=== PATIENT | female | born 1945 | race Hispanic/Latino ===

== ENCOUNTER 2022-08-29 23:30 | Inpatient (IN) | payer OTHER, MEDICARE ==
[~2022-08-29] VITALS: Ht 157.5 cm; Wt 94.2 kg
[2022-08-30] MEDS ORDERED: 0.9%NACL 1000ML 1,000 ML IV ONE
[2022-08-30] MEDS ORDERED: ONDANSETRON 4MG INJ IVP ONE
[2022-08-30 00:12] LABS: BASOPHILS % (AUTO) 0.2 % (0.0-5.0); HEMATOCRIT 40.5 % (36-48); LYMPHOCYTES % (AUTO) 4.6 % (21.0-51.0); MEAN CORPUSCULAR HGB CONC 32.1 g/dL (32.0-36.0); MEAN CORPUSCULAR VOLUME 77.7 fL (79-99); MONOCYTES % (AUTO) 8.6 % (3.0-13.0); NEUTROPHILS % (AUTO) 85.9 % (40.0-77.0); PLATELET COUNT (AUTO) 224 K/uL (130-400); RED BLOOD CELL COUNT(AUTO) 5.21 MIL/uL (4.00-5.50); RED CELL DISTRIBUTION WIDTH 14.4 % (11.0-15.5); WHITE BLOOD COUNT (AUTO) 21.4 K/uL (4.8-10.8)
[2022-08-30 00:21] LABS: CARBON DIOXIDE 22 mmol/L (21-32); CHLORIDE 93 mmol/L (101-111); CREATININE 1.3 mg/dL (0.5-1.5); GLOMERULAR FILTR. RATE CALC 42 mL/min (>60); GLUCOSE,RANDOM 318 mg/dL (70-105); POTASSIUM 4.2 mmol/L (3.5-5.1); SODIUM SERUM 129 mmol/L (136-145); UREA NITROGEN, BLOOD 18 mg/dL (7-18)
[2022-08-30 00:26] LABS: ALANINE AMINOTRANSFERASE 52 U/L (12-78); ALBUMIN 3.6 g/dL (3.5-5.0); ASPARTATE AMINOTRANSFERASE 26 U/L (10-37); CREATINE KINASE, TOTAL 56 U/L (21-232); TOTAL PROTEIN, SERUM 8.4 g/dL (6.0-8.3)
[2022-08-30] MEDS ORDERED: ACETAMINOPHEN 650 MG SUPPOSITORY RC ONE (00:30)
[2022-08-30 00:33] LABS: APPEARANCE,URINE CLEAR (CLEAR); BILIRUBIN,URINE NEGATIVE (NEGATIVE); COLOR,URINE LIGHT-YELLOW (YELLOW); GLUCOSE, URINE (UA) >=1000 mg/dL (NEGATIVE); KETONES,URINE 20 mg/dL (NEGATIVE); LEUKOCYTE ESTERASE ,URINE 25 Leu/uL (NEGATIVE); NITRATE,URINE 2+ (NEGATIVE); OCCULT BLOOD,URINE MODERATE (NEGATIVE); PROTEIN,URINE NEGATIVE (NEGATIVE); UROBILINOGEN,URINE 0.2 mg/dL (0.2-1.0)
[2022-08-30 00:36] LABS: BACTERIA,URINE MOD /HPF (None Seen); RBC,URINE 26-50 /HPF (0-1); SQUAMOUS EPITHELIAL CELL,UR FEW /HPF (0-2)
[2022-08-30 00:47] LABS: AMMONIA < 3 umol/L (11-32)
[2022-08-30] MEDS ORDERED: ZOSYN 3.375GM +NS 50ML IV ONE (01:00)
[2022-08-30] MEDS ORDERED: ASPIRIN 81MG CHEW TAB ONE (01:24)
[2022-08-30] MEDS ORDERED: INSULIN HUMULIN R 100 UNIT/ML 3ML ONE (01:25)
[2022-08-30] MEDS ORDERED: ASPIRIN 81MG CHEW TAB PO ONE (01:30)
[2022-08-30] MEDS ORDERED: NITROGLYCERIN 0.4 MG SL TAB SL PRN (01:30)
[2022-08-30] MEDS ORDERED: LACTATED RINGERS 1000ML 1,710 ML IV ONE (01:30)
[2022-08-30] MEDS ORDERED: LIDOCAINE HCL-MPF 1% 2ML VIAL IV PRN (01:30)
[2022-08-30] MEDS ORDERED: MORPHINE 4 MG SYG IV PRN (01:30)
[2022-08-30] MEDS ORDERED: POTASSIUM CHLORIDE 10% ELIXIR 20 MEQ/15 ML UDCUP PO PRN (01:30)
[2022-08-30] MEDS ORDERED: MAGNESIUM 2GM PREMIX 50ML 50 ML IV PRN (01:30)
[2022-08-30] MEDS ORDERED: ONDANSETRON 4MG INJ IV PRN (01:30)
[2022-08-30] MEDS ORDERED: INSULIN HUMULIN R 100 UNIT/ML 3ML SQ ONE (01:30)
[2022-08-30] MEDS ORDERED: MORPHINE 2 MG SYG IV PRN (01:30)
[2022-08-30] MEDS ORDERED: ACETAMINOPHEN 325 MG TAB PO PRN ×2 (01:30)
[2022-08-30] MEDS ORDERED: POTASSIUM CHLORIDE 20MEQ/100ML 100 ML IV PRN (01:30)
[2022-08-30 03:36] LABS: BASOPHILS % (AUTO) 0.3 % (0.0-5.0); EOSINOPHILS % (AUTO) 0.1 % (0.0-8.0); HEMATOCRIT 36.5 % (36-48); MEAN CORPUSCULAR HEMOGLOBIN 25.1 pg (27.0-33.0); MEAN CORPUSCULAR HGB CONC 32.1 g/dL (32.0-36.0); MEAN CORPUSCULAR VOLUME 78.2 fL (79-99); MONOCYTES % (AUTO) 8.1 % (3.0-13.0); NEUTROPHILS % (AUTO) 83.1 % (40.0-77.0); PLATELET COUNT (AUTO) 172 K/uL (130-400); RED BLOOD CELL COUNT(AUTO) 4.67 MIL/uL (4.00-5.50); RED CELL DISTRIBUTION WIDTH 14.3 % (11.0-15.5); WHITE BLOOD COUNT (AUTO) 16.1 K/uL (4.8-10.8)
[2022-08-30 03:50] LABS: HEMOGLOBIN A1C 12.4 % (4.0-6.0)
[2022-08-30 03:51] VITALS: BP 119/62
[2022-08-30 04:12] LABS: CARBON DIOXIDE 25 mmol/L (21-32); CHLORIDE 95 mmol/L (101-111); CREATININE 1.2 mg/dL (0.5-1.5); GLOMERULAR FILTR. RATE CALC 46 mL/min (>60); GLUCOSE,RANDOM 276 mg/dL (70-105); POTASSIUM 4.3 mmol/L (3.5-5.1); SODIUM SERUM 131 mmol/L (136-145); THYROID STIMULATING HORMONE 1.95 uIU/mL (0.36-3.74); UREA NITROGEN, BLOOD 19 mg/dL (7-18)
[2022-08-30 04:23] LABS: AMMONIA < 3 umol/L (11-32)
[2022-08-30] MEDS ORDERED: ZOSYN 3.375GM+NS 50ML 50 ML IV SCH (05:00)
[2022-08-30] MEDS: LEVOTHYROXINE 75 MCG TABLET PO SCH (05:41)
[2022-08-30] MEDS: LACTATED RINGERS 1000ML 1,000 ML IV SCH ×2 (05:52→22:44)
[2022-08-30] MEDS: INSULIN HUMULIN R 100 UNIT/ML 3ML SQ SCH ×4 (07:05→20:39)
[2022-08-30 08:07] VITALS: BP 130/58
[2022-08-30] MEDS: FAMOTIDINE 20MG TAB PO SCH (08:34)
[2022-08-30] MEDS: ASPIRIN 81 MG EC TAB PO SCH (08:34)
[2022-08-30] MEDS: ENOXAPARIN SODIUM 40 MG/0.4 ML SYRINGE SQ SCH (08:35)
[2022-08-30] MEDS ORDERED: PARO10TA71 PO (08:53)
[2022-08-30] MEDS ORDERED: GLIM4TAB36 PO (08:53)
[2022-08-30] MEDS ORDERED: EMPA25TA PO (08:53)
[2022-08-30] MEDS ORDERED: ERGO50CA PO (08:53)
[2022-08-30] MEDS ORDERED: ATOR10TA69 PO (08:53)
[2022-08-30] MEDS ORDERED: LISI30TA4 PO (08:53)
[2022-08-30] MEDS ORDERED: ASPI-1443 PO (08:53)
[2022-08-30] MEDS: ZOSYN 3.375GM+NS 50ML 50 ML IV SCH ×3 (09:07→20:35)
[2022-08-30 11:57] VITALS: BP 121/55
[2022-08-30 12:30] VITALS: BP 124/55
[2022-08-30] MEDS ORDERED: LIDO 2% VISC 30ML+MAG/AL/SIMETH 30ML+DICYCLOMINE 20MG 10ML PO SCH ×3 (13:00)
[2022-08-30] MEDS ORDERED: PHARMACY COMMUNICATION MISC SCH (13:00)
[2022-08-30] MEDS ORDERED: DICYCLOMINE HCL 10 MG/5 ML ML PO ONE (13:00)
[2022-08-30] MEDS ORDERED: COMPOUND PO MISCELLANEOUS 1 EACH MISC MISC PRN (13:00)
[2022-08-30] MEDS ORDERED: MAG/ALUM/SIMETH 30 ML UDCUP PO ONE (13:00)
[2022-08-30] MEDS ORDERED: LIDOCAINE HCL 2% VISCOUS 15 ML UDCUP PO ONE (13:00)
[2022-08-30] MEDS ORDERED: CILO100T3 PO (13:03)
[2022-08-30] MEDS ORDERED: CLOP-31 PO (13:03)
[2022-08-30] MEDS ORDERED: MONT-39 PO (13:04)
[2022-08-30] MEDS ORDERED: SEMA7TAB2 PO (13:04)
[2022-08-30] MEDS ORDERED: PREG150C46 PO (13:06)
[2022-08-30] MEDS ORDERED: METF-444 PO (13:06)
[2022-08-30] MEDS ORDERED: LEVO50CA4 PO (13:08)
[2022-08-30] MEDS ORDERED: ROSU10TA28 PO (13:08)
[2022-08-30] MEDS ORDERED: PANT40TA54 PO (13:09)
[2022-08-30] MEDS ORDERED: ALBU1.252 IH (13:10)
[2022-08-30] MEDS ORDERED: ICOS1CAP PO (13:11)
[2022-08-30] MEDS ORDERED: FLUT1BLS3 IH (13:12)
[2022-08-30 16:05] VITALS: BP 119/59
[2022-08-30] MEDS: LACTULOSE 20 GM/30 ML UDCUP PO SCH ×2 (16:08→20:22)
[2022-08-30 20:10] VITALS: BP 146/60
[2022-08-31 00:43] VITALS: BP 131/60
[2022-08-31 03:36] LABS: BASOPHILS % (AUTO) 0.2 % (0.0-5.0); EOSINOPHILS % (AUTO) 0.2 % (0.0-8.0); HEMATOCRIT 34.3 % (36-48); LYMPHOCYTES % (AUTO) 8.2 % (21.0-51.0); MEAN CORPUSCULAR HEMOGLOBIN 24.6 pg (27.0-33.0); MEAN CORPUSCULAR HGB CONC 31.8 g/dL (32.0-36.0); MEAN CORPUSCULAR VOLUME 77.4 fL (79-99); MONOCYTES % (AUTO) 8.4 % (3.0-13.0); NEUTROPHILS % (AUTO) 81.2 % (40.0-77.0); PLATELET COUNT (AUTO) 148 K/uL (130-400); RED BLOOD CELL COUNT(AUTO) 4.43 MIL/uL (4.00-5.50); RED CELL DISTRIBUTION WIDTH 14.2 % (11.0-15.5); WHITE BLOOD COUNT (AUTO) 14.2 K/uL (4.8-10.8)
[2022-08-31 03:46] LABS: CREATININE 1.2 mg/dL (0.5-1.5); MAGNESIUM 2.1 mg/dL (1.80-2.40); PHOSPHORUS 3.1 mg/dL (2.5-4.9); POTASSIUM 3.8 mmol/L (3.5-5.1)
[2022-08-31] MEDS: ZOSYN 3.375GM+NS 50ML 50 ML IV SCH ×3 (04:59→22:29)
[2022-08-31] MEDS: LEVOTHYROXINE 75 MCG TABLET PO SCH (05:04)
[2022-08-31 05:15] VITALS: BP 108/55
[2022-08-31] MEDS: INSULIN HUMULIN R 100 UNIT/ML 3ML SQ SCH ×4 (06:05→22:33)
[2022-08-31] MEDS: KCL 20 MEQ ERTAB PO PRN ×2 (06:36→12:18)
[2022-08-31 07:00] VITALS: BP 111/58
[2022-08-31] MEDS: LACTULOSE 20 GM/30 ML UDCUP PO SCH (09:00)
[2022-08-31] MEDS: ENOXAPARIN SODIUM 40 MG/0.4 ML SYRINGE SQ SCH (09:43)
[2022-08-31] MEDS: ASPIRIN 81 MG EC TAB PO SCH (09:43)
[2022-08-31] MEDS: FAMOTIDINE 20MG TAB PO SCH (09:43)
[2022-08-31 11:00] VITALS: BP 109/60
[2022-08-31] MEDS ORDERED: LACTULOSE 20 GM/30 ML UDCUP PO PRN (13:00)
[2022-08-31 16:00] VITALS: BP 106/52
[2022-08-31 19:24] VITALS: BP 110/43
[2022-08-31] MEDS ORDERED: ATORVASTATIN 40 MG TABLET PO SCH (21:00)
[2022-09-01 00:24] VITALS: BP 108/55
[2022-09-01 03:24] VITALS: BP 109/54
[2022-09-01] MEDS: ZOSYN 3.375GM+NS 50ML 50 ML IV SCH ×2 (05:08→12:05)
[2022-09-01] MEDS: INSULIN HUMULIN R 100 UNIT/ML 3ML SQ SCH ×3 (06:23→16:41)
[2022-09-01] MEDS: LEVOTHYROXINE 75 MCG TABLET PO SCH (06:24)
[2022-09-01 07:00] VITALS: BP 104/51
[2022-09-01] MEDS: ASPIRIN 81 MG EC TAB PO SCH (08:15)
[2022-09-01] MEDS: FAMOTIDINE 20MG TAB PO SCH (08:15)
[2022-09-01] MEDS: ENOXAPARIN SODIUM 40 MG/0.4 ML SYRINGE SQ SCH (08:17)
[2022-09-01 11:00] VITALS: BP 114/57
[2022-09-01] MEDS ORDERED: ATOR40TA69 PO (15:33)
[2022-09-01] MEDS ORDERED: LEVO75TA4 PO (15:33)
[2022-09-01] MEDS ORDERED: LEVO750T39 PO (15:33)
[2022-09-01 16:00] VITALS: BP 119/61
== END 2022-09-01 17:15 | disposition home or self-care (01) | DRG 871 ==
LOC: EDH 23:30 → EDHIP 08-30 01:11 → 2DH 08-30 03:36
PROVIDERS: ADMIT Internal Medicine; ATTEND Internal Medicine
DX: A41.9 Sepsis, unspecified organism (principal); G93.41 Metabolic encephalopathy; N39.0 Urinary tract infection, site not specified; Z16.29 Resistance to other single specified antibiotic; I24.8 Other forms of acute ischemic heart disease; Z20.822 Contact with and (suspected) exposure to COVID-19; E11.65 Type 2 diabetes mellitus with hyperglycemia; B96.1 Klebsiella pneumoniae [K. pneumoniae] as the cause of diseases classified elsewhere; E03.9 Hypothyroidism, unspecified; E78.00 Pure hypercholesterolemia, unspecified; I10 Essential (primary) hypertension; Z96.651 Presence of right artificial knee joint
CPT/HCPCS: 36415; 70450; 71045; 80048; 80053; 81001; 82140; 82550; 82948; 83036; 83605; 83735; 84100; 84145; 84443; 84484; 85025; 87040; 87077; 87088; 87186; 87635; 87804; 93005; 93306; 96361; 96365; 96366; 96375; 99291; C9803; G0378; J1650; J1815; J2405; J2543; J3475; J7030; J7120

== ENCOUNTER 2024-10-14 11:04 | Inpatient (IN) | payer OTHER, MEDICARE ==
[~2024-10-14] VITALS: Ht 154.9 cm; Wt 63.5 kg
[~2024-10-14 11:04] MED LIST: ATOR40TA69 PO; DAPA10TA PO; DONE-53 PO; ERGO500093 PO; GLIM4TAB36 PO; LEVO100C4 PO; LISI30TA4 PO; MEMA5TAB16 PO; PARO10TA71 PO; QUET100T34 PO
[2024-10-14 11:48] LABS: BASOPHILS # (AUTO) 0.04 K/uL (0.00-0.20); BASOPHILS % (AUTO) 0.6 % (0.0-5.0); EOSINOPHILS # (AUTO) 0.06 K/uL (0.00-0.70); HEMATOCRIT 38.4 % (36-48); IMMATURE GRANULOCYTE ABSOLUTE 0.06 K/uL (0-1); LYMPHOCYTES # (AUTO) 0.6 K/uL (1.0-4.8); LYMPHOCYTES % (AUTO) 9.5 % (21.0-51.0); MEAN CORPUSCULAR HEMOGLOBIN 25.9 pg (27.0-33.0); MEAN CORPUSCULAR VOLUME 83.5 fL (79-99); MONOCYTES # (AUTO) 0.5 K/uL (0.1-1.0); MONOCYTES % (AUTO) 8.2 % (3.0-13.0); NEUTROPHILS % (AUTO) 79.7 % (40.0-77.0); PLATELET COUNT (AUTO) 175 K/uL (130-400); RED CELL DISTRIBUTION WIDTH 14.7 % (11.0-15.5); WHITE BLOOD COUNT (AUTO) 6.2 K/uL (4.8-10.8)
[2024-10-14 12:02] LABS: CREATININE 1.2 mg/dL (0.5-1.0)
[2024-10-14 12:20] LABS: B-TYPE NATRIURETIC PEPTIDE 109 pg/mL (0-100)
--- NOTE | 2024-10-14 12:36 | EKG ---
[facility] Test Date: 2024-10-14 Test Time: 11:15:49 Pat Name: TANA METCALF Department: ED Room: Gender: F Emergency Preparedness Manager: [id number] : 1945 Requested By: ZA PEREZ Order Number: [id number] Reading MD: Tyler Ceja Measurements Intervals Reynolds Rate: 72 P: 6 GA: 162 QRS: 59 QRSD: 127 T: 21 QT: 393 QTc: 430 Interpretive Statements Sinus rhythm Right bundle branch block Compared to ECG 09/08/2024 21:20:45 Right bundle-branch block now present Sinus bradycardia no longer present Electronically Signed On 10-14-2024 16:05:15 ALGORITHM DESIGN ENGINEER by Tyler Ceja Please click the below link to view image of tracing.
[2024-10-14] MEDS: 0.9%NACL 1000ML 1,000 ML IV ONE (12:38)
[2024-10-14] MEDS: CEFTRIAXONE 2GM VIAL IVPB ONE (12:38)
--- NOTE | 2024-10-14 12:40 | NUR ---
[address] BURRIS
[2024-10-14 12:49] LABS: SARS-CoV-2, RNA, NAAT NEGATIVE SARS CoV-2 (NEGATIVE)
[2024-10-14 12:55] LABS: INFLUENZA TYPE B Negative For Type B (NEGATIVE)
[2024-10-14 13:01] LABS: APPEARANCE,URINE CLEAR (CLEAR); BILIRUBIN,URINE NEGATIVE (NEGATIVE); COLOR,URINE LIGHT-YELLOW (YELLOW); GLUCOSE, URINE (UA) >=1000 mg/dL (NEGATIVE); KETONES,URINE 5 mg/dL (NEGATIVE); LEUKOCYTE ESTERASE ,URINE NEGATIVE Leu/uL (NEGATIVE); NITRATE,URINE 2+ (NEGATIVE); OCCULT BLOOD,URINE NEGATIVE (NEGATIVE); PH,URINE 5.5 (5.0-8.0); UROBILINOGEN,URINE 0.2 mg/dL (0.2-1.0)
[2024-10-14 13:02] LABS: ADD UA MICROSCOPIC YES; PROTEIN,URINE NEGATIVE (NEGATIVE)
[2024-10-14 13:03] LABS: BACTERIA,URINE FEW /HPF (None Seen); RBC,URINE 0-1 /HPF (0-1); SQUAMOUS EPITHELIAL CELL,UR RARE /HPF (0-2)
--- NOTE | 2024-10-14 13:37 | ERN ---
ED Note History of Present Illness Stated Complaint: COUGH, FEVER AND WEAKNESS Chief Complaint: Weakness Time Seen by MD: 12:08 Dictation: 79-year-old female with a history of dementia presents to the ED via EMS for evaluation of cough onset two days ago. EMS reports fever and generalized body weakness that started last night, but denies any other associated symptoms at this time. Allergies: Coded Allergies: Penicillins (Unverified Allergy, Unknown, 09/07/24) Home Meds Active Scripts Atorvastatin Calcium (LIPITOR) 40 Mg Tablet, 40 MG PO HS, #30 TAB 0 Refills Prov:JANE DAVILA MD 09/01/22 Reported Medications Quetiapine Fumarate (Quetiapine Fumarate) 100 Mg Tablet, 100 MG PO DAILY, TAB 09/07/24 Levothyroxine Sodium (Levothyroxine) 100 Mcg Capsule, 100 MCG PO DAILY, CAP 04/06/24 Donepezil HCl (Donepezil HCl) 10 Mg Tab.rapdis, 10 MG PO DAILY, TAB 04/06/24 Glimepiride (Glimepiride) 4 Mg Tablet, 4 MG PO BID, TAB 04/06/24 Ergocalciferol (Vitamin D2) (Vitamin D2) 1,250 Mcg (40613 Unit) Capsule, 1.25 MG PO QWEEK, CAP 04/06/24 Memantine HCl (Memantine HCl) 5 Mg Tablet, 5 MG PO BID, TAB 04/06/24 Dapagliflozin Propanediol (Farxiga) 10 Mg Tablet, 10 MG PO DAILY, TAB 04/06/24 Paroxetine HCl (Paroxetine HCl) 10 Mg Tablet, 10 MG PO DAILY, TAB 08/30/22 Lisinopril (Lisinopril) 30 Mg Tablet, 30 MG PO DAILY, TAB 08/30/22 Past Medical History Past Medical History: Dementia, Diabetes-Type II, Hypertension Additional Past Medical Hx: CHOLELITHIASIS Surgical History: Unknown Family History: Negative Social History: Negative, Other History: Not Applicable Review of System Dictation Constitutional: Positive for fever and weakness Eyes: Negative for injury, pain,redness, and discharge ENT: Negative for injury,pain or swelling Cardiovascular: Negative for chest pain, palpitations, and edema Respiratory: Positive for cough Negative for shortness of breath and wheezing, Abdomen/GI: Negative for abdominal pain, nausea, vomiting, diarrhea, and constipation Back: Negative for injury and pain : Negative for injury, bleeding and discharge MS/Extremity: Negative for injury and deformity Skin: Negative for rash, and discoloration Neuro: Negative for headache, weakness, numbness, tingling, and seizure Psych: Negative for suicide ideation, homicidal ideation, and hallucinations Initial Vital Sign VS Vital Signs Date Time Temp Pulse Resp B/P (MAP) Pulse Ox O2 Delivery O2 Flow Rate FiO2 10/14/24 11:08 102.4 70 17 114/62 97 Nasal Cannula 2.0 10/14/24 11:22 21 Physical Exam Dictation General: awake, alert, NAD Head/Face: Normocephalic, atraumatic Eyes: PERRL, EOMI, vision at baseline ENT: oral cavity clear, TMs clear, no signs of infection Neck: Trachea midline, supple, no nuchal rigidity Cardiovascular: RRR, normal S1/S2, No MRGs, no JVD Respiratory: CTAB, no respiratory distress, No rales or wheezes Abdomen: Soft, non-tender, non-distended, normal bowel sounds, no guarding or rebound. Skin: Warm, dry, normal turgor, no rash MS/Extremity: Pulses equal, no cyanosis, neurovascular intact, FROM Neuro: COAx4, GCS 15, strength 5/5, CN 2-12 intact, normal cerebellar exam, normal gait, Psych: Normal behavior, mood, and affect normal Results (Laboratory/Radiology) Laboratory/Radiology Laboratory Tests Test 10/14/24 11:31 10/14/24 11:35 10/14/24 12:10 10/14/24 12:26 White Blood Count 6.2 K/uL (4.8-10.8) Red Blood Count 4.60 MIL/uL (4.00-5.50) Hemoglobin 11.9 g/dL (12.0-16.0) L Hematocrit 38.4 % (36-48) Mean Corpuscular Volume 83.5 fL (79-99) Mean Corpuscular Hemoglobin 25.9 pg (27.0-33.0) L Mean Corpuscular Hemoglobin Concent 31.0 g/dL (32.0-36.0) L Red Cell Distribution Width 14.7 % (11.0-15.5) Platelet Count 175 K/uL (130-400) Mean Platelet Volume 12.4 fL (7.5-10.5) H Immature Granulocyte % (Auto) 1.0 % (0-1) Neutrophils (%) (Auto) 79.7 % (40.0-77.0) H Lymphocytes (%) (Auto) 9.5 % (21.0-51.0) L Monocytes (%) (Auto) 8.2 % (3.0-13.0) Eosinophils (%) (Auto) 1.0 % (0.0-8.0) Basophils (%) (Auto) 0.6 % (0.0-5.0) Neutrophils # (Auto) 5.0 K/uL (1.8-7.7) Lymphocytes # (Auto) 0.6 K/uL (1.0-4.8) L Monocytes # (Auto) 0.5 K/uL (0.1-1.0) Eosinophils # (Auto) 0.06 K/uL (0.00-0.70) Basophils # (Auto) 0.04 K/uL (0.00-0.20) Absolute Immature Granulocyte (auto 0.06 K/uL (0-1) Segmented Neutrophils % 62 % (40-70) Band Neutrophils % 17 % (0-2) H Lymphocytes % (Manual) 15 % (22-44) L Monocytes % (Manual) 4 % (2-9) Eosinophils % (Manual) 1 % (1-6) Basophils % (Manual) 1 % (0-2) Nucleated Red Blood Cells 0.0 % (0.0-0.19) Differential Comment MANUAL DIFFERENTIAL White Cell Morphology Comment CONSISTENT W/DIFF Platelet Morphology Comment ADEQUATE Red Blood Cell Morphology See comments Sodium Level 137 mmol/L (136-145) Potassium Level 5.0 mmol/L (3.5-5.1) Chloride Level 101 mmol/L (101-111) Carbon Dioxide Level 27 mmol/L (21-32) Blood Urea Nitrogen 22 mg/dL (7-18) H Creatinine 1.2 mg/dL (0.5-1.0) H Glomerular Filtration Rate Calc 46 mL/min (>90) Random Glucose 159 mg/dL (70-105) H Total Calcium 8.8 mg/dL (8.5-10.1) Troponin I High Sensitivity 10 ng/L (4-50) B-Type Natriuretic Peptide 109 pg/mL (0-100) H Influenza Type A Antigen Positive For Type A Influenza Type B Antigen Negative For Type B SARS-CoV-2, RNA, NAAT NEGATIVE SARS CoV-2 Urine Color LIGHT-YELLOW (YELLOW) Urine Appearance CLEAR (CLEAR) Urine pH 5.5 (5.0-8.0) Urine Specific [place] 1.022 (1.001-1.031) Urine Protein NEGATIVE mg/dL (NEGATIVE) Urine Glucose (UA) >=1000 mg/dL (NEGATIVE) H Urine Ketones 5 mg/dL (NEGATIVE) H Urine Occult Blood NEGATIVE (NEGATIVE) Urine Nitrate 2+ (NEGATIVE) H Urine Bilirubin NEGATIVE mg/dL (NEGATIVE) Urine Urobilinogen 0.2 mg/dL (0.2-1.0) Urine Leukocyte Esterase NEGATIVE Edgardo/uL Urine RBC 0-1 /HPF (0-1) Urine WBC 2-5 /HPF (0-1) H Urine Squamous Epithelial Cells RARE /HPF (0-2) Urine Bacteria FEW /HPF (None Seen) Lactic Acid Level 1.6 mmol/L (0.8-2.5) Labs Reviewed?: Yes EKG Comment: EK 10/14/2024 time 11:15 am ventricular rate 72, HI 162, QRS D 127, QT 393. Sinus rhythm, right bundle-branch block. No STEMI ED Course ED Course Orders Procedure Category Date Status Time Blood Cult DENILSON 10/14/24 In Process 11:06 Basic Metabolic Panel LAB 10/14/24 Complete 11:06 Cbc With Differential LAB 10/14/24 Complete 11:06 Urinalysis Profile LAB 10/14/24 Complete 11:06 Chest 1vw RAD 10/14/24 Taken 11:06 12 Lead Ekg Tracing- EKG 10/14/24 Complete Technical 11:06 Covid Rna Naat LAB 10/14/24 Complete 11:06 Influenza Type A & B, LAB 10/14/24 Complete Rapid 11:06 Troponin I High LAB 10/14/24 Complete Sensitivity 11:06 B-Type Natriuretic LAB 10/14/24 Complete Peptide 11:06 Lactic Acid LAB 10/14/24 Complete 12:08 Ceftriaxone 2gm Vial PHA 10/14/24 Complete (Rocephin 2gm Inj) 12:30 0.9%Nacl 1000ml (Ns PHA 10/14/24 Complete 1000ml) 12:30 Culture Urine DENILSON 10/14/24 In Process 13:02 Manual Differential LAB 10/14/24 Complete 11:31 Oseltamivir Phosphate PHA 10/14/24 Complete (Tamiflu) 15:00 Acetaminophen 500mg PHA 10/14/24 Complete Tab (Tylenol 500mg T 15:00 Current Medications Medications (Trade) Dose Ordered Sig/Patricia Route PRN Reason Start Time Stop Time Status Last Admin Dose Admin Acetaminophen (TYLenol 500MG TAB) 1,000 mg ONCE ONCE PO 10/14/24 15:00 10/14/24 15:01 DC 10/14/24 15:03 Ceftriaxone Sodium (Rocephin 2gm Inj) 2 gm ONCE ONCE IVPB 10/14/24 12:30 10/14/24 12:32 DC 10/14/24 12:38 Oseltamivir Phosphate (Tamiflu) 75 mg ONCE ONCE PO 10/14/24 15:00 10/14/24 15:01 DC 10/14/24 14:49 Sodium Chloride 1,000 ml @ 0 mls/hr ONCE ONCE IV 10/14/24 12:30 10/14/24 12:32 DC 10/14/24 12:38 Vital Signs Date Time Temp Pulse Resp B/P (MAP) Pulse Ox O2 Delivery O2 Flow Rate FiO2 10/14/24 14:34 99.1 74 17 128/60 97 Nasal Cannula* 2.0 N/A 10/14/24 12:46 100.6 70 17 127/62 97 Nasal Cannula* 2.0 N/A 10/14/24 11:38 102.4 66 17 136/53 97 Nasal Cannula* 2 28 10/14/24 11:22 102.4 70 17 114/62 97 Room Air* 0 21 10/14/24 11:08 102.4 70 17 114/62 97 Nasal Cannula 2.0 Medical Decision Making MDM MDM: Differential diagnosis: URI, cough, viral syndrome Risk of complication and/or morbidity or mortality of patient management: None Medications-Per medication reconciliation Need for hospitalization: Patient does meet criteria for hospitalization. Need for emergency major/minor surgery: No There are no social concerns with this patient. I independently interpreted the test that were performed, results were reviewed by me and considered findings on radiology if ordered. Medical management and examination interpretation discussions were had by me with other qualified healthcare professionals as indicated for the patient's care. DX & DISP Disposition: Inpatient Decision to Admit Date: Oct 14, 2024 Decision to Admit Time: 12:27 Departure Impression: Primary Impression: Influenza A Additional Impression: Dehydration Condition: Stable Referrals: BOLA SCHOFIELD MD (PCP) ZA PEREZ MD Oct 14, 2024 13:37
[2024-10-14 13:45] LABS: BAND NEUTROPHILS % (MANUAL) 17 % (0-2); BASOPHILS % (MANUAL) 1 % (0-2); EOSINOPHILS % (MANUAL) 1 % (1-6); LYMPHOCYTES % (MANUAL) 15 % (22-44); MAN.DIFF COMMENT-IMPRESSION MANUAL DIFFERENTIAL; MONOCYTES % (MANUAL) 4 % (2-9); PLATELET MORPHOLOGY COMMENT ADEQUATE; SEGMENTED NEUTROPHILS % 62 % (40-70); TOTAL CELLS COUNTED 100; WBC MORPHOLOGY CONSISTENT W/DIFF
[2024-10-14 14:28] LABS: INFLUENZA TYPE A Positive For Type A (NEGATIVE)
[2024-10-14] MEDS: OSELTAMIVIR PHOSPHATE 75 MG CAP PO ONE (14:49)
[2024-10-14] MEDS: acetaMINOPHEN 500 MG TABLET PO ONE (15:03)
--- NOTE | 2024-10-14 15:53 | HMCIMG ---
CHEST 1VW HISTORY: Fever and cough COMPARISON: 09/10/2024 FINDINGS: A frontal projection of the chest was obtained. Mild bilateral pulmonary infiltrates are seen may be related to mild pulmonary vascular congestion with possible superimposed pneumonitis. The heart is borderline enlarged. Postop changes are seen of right humerus. Degenerative changes are seen. IMPRESSION: 1. Mild bilateral pulmonary infiltrates are seen may be related to mild pulmonary vascular congestion with possible superimposed pneumonitis.
--- NOTE | 2024-10-14 20:54 | HP ---
[facility] HISTORY & PHYSICAL Date Patient Seen: Oct 14, 2024 Time of Visit: 20:53 Supervising Physician: Dr. Russ Estrada Primary Care Physician: Outpatient Specialists: [ ] Inpatient Consults: [ ] PROBLEM LIST: Acute hypoxic respiratory failure, POA Influenza B positive, POA Alteration in mental status, POA Acute kidney injury, POA Hypertension, POA Hypothyroidism, POA History of dementia on donepezil PLAN: Admit to medical-surgical floor VS per unit protocol Continue O2 therapy Isolation precautions We will continue Tamiflu Treat fever aggressively Monitor temperature curve Safety precautions Keep head of bed above 30 Keep systolic blood pressure less than 160 P.r.n. hydralazine labetalol Follow up culture results CBC, CMP, magnesium level daily HPI: 79-year-old female with past medical history of dementia, hypertension, hypothyroidism, who presented to ED via EMS with complaint of worsening shortness of breast for several days and found to have acute hypoxic respiratory failure, and flu B positive. Patient was seen and examined in ED with no relatives present at bedside. Patient unable to provide any pertinent information regarding her admission and pertinent medical history. All information were obtained from prior medical record and ER staff report. Patient presented in ER with mild hypoxemia improved with O2 therapy. Stat chest x-ray was done showed vascular congestion with superimposed pneumonitis, her CBC unrevealing for any acute infection or anemia, her chemistry is significant for creatinine level of 1.2, with normal electrolytes. Her COVID test was negative however her flu test came back positive with flu B. In ED patient was initiated on IV fluids and started on Tamiflu. At present patient is currently hemodynamically stable, on2 L of oxygen with appropriate oxygen saturation, patient is confused, with no focal weakness noted. PAST MEDICAL HX: see above PAST SURGICAL HX: noncontributory SOCIAL HISTORY: No tobacco, ETOH, or illicit drug use Coded Allergies: Penicillins (Unverified Allergy, Unknown, 09/07/24) REVIEW OF SYSTEMS: 12 point ROS reviewed with patient. Pertinent positives mentioned above. Otherwise negative. PHYSICAL EXAM: GENERAL: Confused HEENT: EOMI, Sclera non icteric, moist mucosa NECK: Supple, no JVD, trachea midline LUNGS: Clear breath sounds bilaterally. No wheezes HEART: Regular rate and rhythm. Normal S1 and S2, without murmurs ABD: Abdomen soft, nontender. Bowel sounds present EXT: No clubbing cyanosis or edema NEURO: Confused Vital Signs (last 8hr) Date Time Temp Pulse Resp B/P (MAP) Pulse Ox O2 Delivery O2 Flow Rate FiO2 10/14/24 19:58 98.2 57 18 117/52 97 Nasal Cannula* 2.0 N/A 10/14/24 18:23 99.1 72 17 124/62 97 Nasal Cannula* 2.0 N/A 10/14/24 14:34 99.1 74 17 128/60 97 Nasal Cannula* 2.0 N/A LABS: Hematology Labs: Test 10/14/24 11:31 Range/Units White Blood Count 6.2 4.8-10.8 K/uL Red Blood Count 4.60 4.00-5.50 MIL/uL Hemoglobin 11.9 L 12.0-16.0 g/dL Hematocrit 38.4 36-48 % Mean Corpuscular Volume 83.5 79-99 fL Mean Corpuscular Hemoglobin 25.9 L 27.0-33.0 pg Mean Corpuscular Hemoglobin Concent 31.0 L 32.0-36.0 g/dL Red Cell Distribution Width 14.7 11.0-15.5 % Platelet Count 175 130-400 K/uL Mean Platelet Volume 12.4 H 7.5-10.5 fL Immature Granulocyte % (Auto) 1.0 0-1 % Neutrophils (%) (Auto) 79.7 H 40.0-77.0 % Lymphocytes (%) (Auto) 9.5 L 21.0-51.0 % Monocytes (%) (Auto) 8.2 3.0-13.0 % Eosinophils (%) (Auto) 1.0 0.0-8.0 % Basophils (%) (Auto) 0.6 0.0-5.0 % Neutrophils # (Auto) 5.0 1.8-7.7 K/uL Lymphocytes # (Auto) 0.6 L 1.0-4.8 K/uL Monocytes # (Auto) 0.5 0.1-1.0 K/uL Eosinophils # (Auto) 0.06 0.00-0.70 K/uL Basophils # (Auto) 0.04 0.00-0.20 K/uL Absolute Immature Granulocyte (auto 0.06 0-1 K/uL Segmented Neutrophils % 62 40-70 % Band Neutrophils % 17 H 0-2 % Lymphocytes % (Manual) 15 L 22-44 % Monocytes % (Manual) 4 2-9 % Eosinophils % (Manual) 1 1-6 % Basophils % (Manual) 1 0-2 % Nucleated Red Blood Cells 0.0 0.0-0.19 % Differential Comment MANUAL DIFFERENTIAL White Cell Morphology Comment CONSISTENT W/DIFF Platelet Morphology Comment ADEQUATE Red Blood Cell Morphology See comments Chemistry Labs: Test 10/14/24 12:26 10/14/24 11:31 Range/Units Lactic Acid Level 1.6 0.8-2.5 mmol/L Sodium Level 137 136-145 mmol/L Potassium Level 5.0 3.5-5.1 mmol/L Chloride Level 101 101-111 mmol/L Carbon Dioxide Level 27 21-32 mmol/L Blood Urea Nitrogen 22 H 7-18 mg/dL Creatinine 1.2 H 0.5-1.0 mg/dL Glomerular Filtration Rate Calc 46 >90 mL/min Random Glucose 159 H 70-105 mg/dL Total Calcium 8.8 8.5-10.1 mg/dL Troponin I High Sensitivity 10 4-50 ng/L B-Type Natriuretic Peptide 109 H 0-100 pg/mL DIAGNOSTICS / RADIOLOGY RESULTS: CHEST 1VW HISTORY: Fever and cough COMPARISON: 09/10/2024 FINDINGS: A frontal projection of the chest was obtained. Mild bilateral pulmonary infiltrates are seen may be related to mild pulmonary vascular congestion with possible superimposed pneumonitis. The heart is borderline enlarged. Postop changes are seen of right humerus. Degenerative changes are seen. IMPRESSION: 1. Mild bilateral pulmonary infiltrates are seen may be related to mild pulmonary vascular congestion with possible superimposed pneumonitis. PLAN NEURO: Minimize central acting medications as possible. Maintain fall precautions, adequate lighting during the day PULMONARY: Supplemental 02 as needed. Maintain aspiration precautions at all times CARDIOVASCULAR: Follow hemodynamics. Vital signs per facility protocol GI & NUTRITION: Continue with nutritional support. Continue stool softeners and laxatives as needed. KIDNEYS & ELECTROLYTES: Strict monitoring of intake, output and overall fluid balance. Avoid nephrotoxic medications to the extent possible. Medications to be dosed according to renal function. Monitor electrolytes and replace as needed ENDOCRINE: Maintain blood glucose between 100-180 at all times. Hypoglycemia protocol in place INFECTIOUS DISEASE: Trend temperature, WBC and procalcitonin level Follow cultures, deescalate antibiotics as soon as possible. Panculture if new onset fever ONCOLOGY/HEMATOLOGY/COAGULATION: Monitor for s/s of bleeding Monitor hemoglobin, coagulation studies as needed SKIN: Pressure ulcer prevention per facility protocol Specialty mattress ORTHO/REHAB: Continue PT/OT Prophylaxis: Continue GI and DVT prophylaxis Code Status: Full Resuscitation Disposition: TBD Other: Total patient care time exceeds 35 minutes excluding all procedures. Supervising physician: AMAYA Singleton APRN Oct 14, 2024 20:54
[2024-10-14] MEDS: INSULIN humuLIN R 100 UNIT/ML 3ML SQ SCH (21:00)
[2024-10-14] MEDS ORDERED: HYDROcodone/APAP 5/325 1 TAB TABLET PO PRN (21:00)
[2024-10-14] MEDS ORDERED: hydrALAZine 20MG/ML VIAL IV PRN (21:00)
[2024-10-14] MEDS ORDERED: acetaMINOPHEN 650 MG SUPPOSITORY RC PRN (21:00)
[2024-10-14] MEDS ORDERED: LAbetaLOL 20MG SYG IV PRN (21:00)
[2024-10-14] MEDS ORDERED: acetaMINOPHEN 325 MG TAB PO PRN (21:00)
[2024-10-14] MEDS ORDERED: ondanSETRON 4MG INJ IVP PRN (21:00)
[2024-10-14] MEDS: OSELTAMIVIR PHOSPHATE 75 MG CAP PO SCH (21:30)
[2024-10-14] MEDS: LACTATED RINGERS 1000ML 1,000 ML IV SCH ×2 (21:30→22:09)
[2024-10-14] MEDS: ENOXAPARIN SODIUM 30 MG/0.3 ML SQ SCH (22:08)
[2024-10-15] VITALS (9 sets, daily range): BP systolic 126; BP diastolic 51; PULSE 60–103; RESP 17–22; TEMP 98.2; O2SAT 95–97
[2024-10-15] MEDS: IpraTROPium 0.5 MG/2.5 ML INH IH SCH (01:06)
[2024-10-15 07:02] LABS: BASOPHILS # (AUTO) 0.03 K/uL (0.00-0.20); BASOPHILS % (AUTO) 0.7 % (0.0-5.0); EOSINOPHILS # (AUTO) 0.13 K/uL (0.00-0.70); EOSINOPHILS % (AUTO) 2.9 % (0.0-8.0); HEMATOCRIT 37.8 % (36-48); IMMATURE GRANULOCYTE ABSOLUTE 0.06 K/uL (0-1); LYMPHOCYTES % (AUTO) 22.3 % (21.0-51.0); MEAN CORPUSCULAR HEMOGLOBIN 26.2 pg (27.0-33.0); MEAN CORPUSCULAR HGB CONC 30.7 g/dL (32.0-36.0); MEAN CORPUSCULAR VOLUME 85.3 fL (79-99); MONOCYTES # (AUTO) 0.6 K/uL (0.1-1.0); MONOCYTES % (AUTO) 13.7 % (3.0-13.0); NEUTROPHILS # (AUTO) 2.7 K/uL (1.8-7.7); NEUTROPHILS % (AUTO) 59.1 % (40.0-77.0); PLATELET COUNT (AUTO) 155 K/uL (130-400); RED BLOOD CELL COUNT(AUTO) 4.43 MIL/uL (4.00-5.50); RED CELL DISTRIBUTION WIDTH 14.7 % (11.0-15.5); WHITE BLOOD COUNT (AUTO) 4.5 K/uL (4.8-10.8)
[2024-10-15 07:14] LABS: CREATININE 1.2 mg/dL (0.5-1.0); PHOSPHORUS 4.3 mg/dL (2.5-4.9); POTASSIUM 4.7 mmol/L (3.5-5.1)
[2024-10-15] MEDS ORDERED: OSELTAMIVIR PHOSPHATE 75 MG CAP PO SCH (09:00)
[2024-10-15] MEDS: polyETHYLene GLYCol 3350 17 GM POWD.PACK PO SCH (09:00)
[2024-10-15] MEDS: CEFTRIAXONE 2GM VIAL IVPB SCH (10:43)
[2024-10-15] MEDS: ASCORBIC ACID 500 MG TAB PO SCH (10:46)
--- NOTE | 2024-10-15 10:50 | NUR ---
DCP: HOME Sw met with pt who states she lives with her daughter Carlota Brown [phone]. Pt states she is independent of her ADLS, and IADLs. Uses a walker and shower chair. No HH or HD. PCP is [facility]. Daughter transports as needed. Pt denies need for SNF or referral and [place]. Addendum: 10/15/24 at 1109 by VIK CEE Amended: Links added.
[2024-10-15] MEDS ORDERED: HYDR-3421 PO (16:26)
--- NOTE | 2024-10-15 17:30 | PN ---
[facility] PROGRESS NOTE Date Patient Seen: Oct 15, 2024 Time of Visit: 17:27 Supervising Physician: IVETTE ROMERO Primary Care Physician: Lanre Troy MD Outpatient Specialists: [ ] Inpatient Consults: [ ] PROBLEM LIST Acute hypoxic respiratory failure, POA Influenza B positive, POA Alteration in mental status, POA Acute kidney injury, POA Hypertension, POA Hypothyroidism, POA History of dementia on donepezil PLAN: Continue O2 therapy Isolation precautions We will continue Tamiflu Treat fever aggressively Monitor temperature curve Safety precautions Keep head of bed above 30 Keep systolic blood pressure less than 160 P.r.n. hydralazine labetalol Follow up culture results CBC, CMP, magnesium level daily INTERVAL HISTORY: Patient was seen and examined today by me at bedside, the patient was lying in bed, on O2 via nasal cannula at L. She continues with cough and congestion. She was on Tamiflu and nebulization treatment. She also continues on Rocephin for urinary tract infection. Currently on LR at 80 cc/hour for IV hydration, appetite is improving. Daughter is at bedside. Patient was otherwise independent almost a IADLs and ADLs but given this infection the patient has become deconditioned. We will have PT and OT evaluate the patient and daughter is open to halfway facility should the patient be to deconditioned REVIEW OF SYSTEMS: 12 point ROS reviewed with patient. Pertinent positives mentioned above. Otherwise negative. PHYSICAL EXAM: GENERAL: awake , alert, following commands, oriented x 2 HEENT: EOMI, Sclera non icteric, moist mucosa NECK: Supple, no JVD, trachea midline LUNGS: Clear breath sounds bilaterally. No wheezes HEART: Regular rate and rhythm. Normal S1 and S2, without murmurs ABD: Abdomen soft, nontender. Bowel sounds present EXT: No clubbing cyanosis or edema NEURO: no neuro deficits, oriented x 2 Vital Signs (last 8hr) Date Time Temp Pulse Resp B/P (MAP) Pulse Ox O2 Delivery O2 Flow Rate FiO2 10/15/24 11:19 65 20 LABS: Hematology Labs: Test 10/15/24 06:41 10/14/24 11:31 Range/Units White Blood Count 4.5 #L 4.8-10.8 K/uL Red Blood Count 4.43 4.00-5.50 MIL/uL Hemoglobin 11.6 L 12.0-16.0 g/dL Hematocrit 37.8 36-48 % Mean Corpuscular Volume 85.3 79-99 fL Mean Corpuscular Hemoglobin 26.2 L 27.0-33.0 pg Mean Corpuscular Hemoglobin Concent 30.7 L 32.0-36.0 g/dL Red Cell Distribution Width 14.7 11.0-15.5 % Platelet Count 155 130-400 K/uL Mean Platelet Volume 12.1 H 7.5-10.5 fL Immature Granulocyte % (Auto) 1.3 H 0-1 % Neutrophils (%) (Auto) 59.1 40.0-77.0 % Lymphocytes (%) (Auto) 22.3 21.0-51.0 % Monocytes (%) (Auto) 13.7 H 3.0-13.0 % Eosinophils (%) (Auto) 2.9 0.0-8.0 % Basophils (%) (Auto) 0.7 0.0-5.0 % Neutrophils # (Auto) 2.7 1.8-7.7 K/uL Lymphocytes # (Auto) 1.0 1.0-4.8 K/uL Monocytes # (Auto) 0.6 0.1-1.0 K/uL Eosinophils # (Auto) 0.13 0.00-0.70 K/uL Basophils # (Auto) 0.03 0.00-0.20 K/uL Absolute Immature Granulocyte (auto 0.06 0-1 K/uL Nucleated Red Blood Cells 0.0 0.0-0.19 % Segmented Neutrophils % 62 40-70 % Band Neutrophils % 17 H 0-2 % Lymphocytes % (Manual) 15 L 22-44 % Monocytes % (Manual) 4 2-9 % Eosinophils % (Manual) 1 1-6 % Basophils % (Manual) 1 0-2 % Differential Comment MANUAL DIFFERENTIAL White Cell Morphology Comment CONSISTENT W/DIFF Platelet Morphology Comment ADEQUATE Red Blood Cell Morphology See comments Chemistry Labs: Test 10/15/24 17:20 10/15/24 06:41 10/14/24 12:26 10/14/24 11:31 Range/Units Whole Blood Glucose 148 H 70-110 MG/DL Sodium Level 139 136-145 mmol/L Potassium Level 4.7 3.5-5.1 mmol/L Chloride Level 105 101-111 mmol/L Carbon Dioxide Level 28 21-32 mmol/L Blood Urea Nitrogen 28 H 7-18 mg/dL Creatinine 1.2 H 0.5-1.0 mg/dL Glomerular Filtration Rate Calc 46 >90 mL/min Random Glucose 105 70-105 mg/dL Total Calcium 8.5 8.5-10.1 mg/dL Phosphorus Level 4.3 2.5-4.9 mg/dL Magnesium Level 2.00 1.80-2.40 mg/dL Procalcitonin < 0.05 L 0.05-0.5 ng/mL Lactic Acid Level 1.6 0.8-2.5 mmol/L Troponin I High Sensitivity 10 4-50 ng/L B-Type Natriuretic Peptide 109 H 0-100 pg/mL DIAGNOSTICS / RADIOLOGY RESULTS: [ ] PLAN NEURO: Minimize central acting medications as possible. Maintain fall precautions, adequate lighting during the day PULMONARY: Supplemental 02 as needed. Maintain aspiration precautions at all times CARDIOVASCULAR: Follow hemodynamics. Vital signs per facility protocol GI & NUTRITION: Continue with nutritional support. Continue stool softeners and laxatives as needed. KIDNEYS & ELECTROLYTES: Strict monitoring of intake, output and overall fluid balance. Avoid nephrotoxic medications to the extent possible. Medications to be dosed according to renal function. Monitor electrolytes and replace as needed ENDOCRINE: Maintain blood glucose between 100-180 at all times. Hypoglycemia protocol in place INFECTIOUS DISEASE: Trend temperature, WBC and procalcitonin level Follow cultures, deescalate antibiotics as soon as possible. Panculture if new onset fever ONCOLOGY/HEMATOLOGY/COAGULATION: Monitor for s/s of bleeding Monitor hemoglobin, coagulation studies as needed SKIN: Pressure ulcer prevention per facility protocol Specialty mattress ORTHO/REHAB: Continue PT/OT Prophylaxis: Continue GI and DVT prophylaxis Code Status: Full Resuscitation Disposition: TBD Other: Total patient care time exceeds 35 minutes excluding all procedures. ROBBIE MORA Oct 15, 2024 17:30
--- NOTE | 2024-10-15 21:05 | NUR ---
NURSE BUSY FOR REPORT AT THIS TIME.
[2024-10-16] VITALS (11 sets, daily range): BP systolic 110–124; BP diastolic 54–68; PULSE 57–69; RESP 17–20; TEMP 97.6–98.4; O2SAT 95–96
[2024-10-16 05:44] LABS: BASOPHILS # (AUTO) 0.01 K/uL (0.00-0.20); BASOPHILS % (AUTO) 0.3 % (0.0-5.0); EOSINOPHILS # (AUTO) 0.14 K/uL (0.00-0.70); EOSINOPHILS % (AUTO) 4.4 % (0.0-8.0); IMMATURE GRANULOCYTE ABSOLUTE 0.03 K/uL (0-1); LYMPHOCYTES # (AUTO) 1.4 K/uL (1.0-4.8); MEAN CORPUSCULAR HEMOGLOBIN 26.3 pg (27.0-33.0); MEAN CORPUSCULAR HGB CONC 32.1 g/dL (32.0-36.0); MEAN CORPUSCULAR VOLUME 82.1 fL (79-99); MONOCYTES # (AUTO) 0.4 K/uL (0.1-1.0); MONOCYTES % (AUTO) 12.3 % (3.0-13.0); NEUTROPHILS # (AUTO) 1.2 K/uL (1.8-7.7); NEUTROPHILS % (AUTO) 39.1 % (40.0-77.0); PLATELET COUNT (AUTO) 134 K/uL (130-400); RED BLOOD CELL COUNT(AUTO) 4.14 MIL/uL (4.00-5.50); RED CELL DISTRIBUTION WIDTH 14.6 % (11.0-15.5); WHITE BLOOD COUNT (AUTO) 3.2 K/uL (4.8-10.8)
[2024-10-16 05:56] LABS: ALANINE AMINOTRANSFERASE 17 U/L (12-78); ALBUMIN 2.5 g/dL (3.5-5.0); AMMONIA < 10 umol/L (11-32); ASPARTATE AMINOTRANSFERASE 32 U/L (10-37); BILIRUBIN,TOTAL 0.4 mg/dL (0.2-1.0); CARBON DIOXIDE 24 mmol/L (21-32); CHLORIDE 104 mmol/L (101-111); CREATININE 0.9 mg/dL (0.5-1.0); GLOMERULAR FILTR. RATE CALC 65 mL/min (>90); GLUCOSE,RANDOM 163 mg/dL (70-105); POTASSIUM 4.1 mmol/L (3.5-5.1); SODIUM SERUM 135 mmol/L (136-145); TOTAL PROTEIN, SERUM 6.6 g/dL (6.0-8.3); UREA NITROGEN, BLOOD 21 mg/dL (7-18)
[2024-10-16 06:06] LABS: B-TYPE NATRIURETIC PEPTIDE 55 pg/mL (0-100)
[2024-10-16] MEDS: MAGNESIUM 2GM PREMIX 50ML 50 ML IV PRN (12:23)
--- NOTE | 2024-10-16 12:51 | HMCIMG ---
CHEST 1VW HISTORY: Pneumonia COMPARISON: 10/14/2024 FINDINGS: A frontal projection of the chest was obtained. Prominent interstitial markings are seen with possible superimposed infiltrates. The heart is borderline enlarged. Prominent interstitial markings are seen. Degenerative changes are seen. IMPRESSION: 1. Prominent interstitial markings are seen with possible superimposed infiltrates.
[2024-10-17] VITALS (14 sets, daily range): BP systolic 115–141; BP diastolic 50–84; PULSE 50–68; RESP 18–20; TEMP 98–98.3; O2SAT 94–97
--- NOTE | 2024-10-17 00:17 | PN ---
[facility] PROGRESS NOTE Date Patient Seen: Oct 16, 2024 Supervising Physician: MD ERI Primary Care Physician: Lanre Troy MD Outpatient Specialists: [ ] Inpatient Consults: [ ] PROBLEM LIST Acute hypoxic respiratory failure, POA Influenza B positive, POA Alteration in mental status, POA , in setting of underlying dementia, improving Acute kidney injury, POA Hypertension, POA Hypothyroidism, POA History of dementia on donepezil PLAN: Continue O2 therapy Isolation precautions We will continue Tamiflu Monitor temperature curve Safety precautions Keep head of bed above 30 Keep systolic blood pressure less than 160 P.r.n. hydralazine labetalol Follow up culture results CBC, CMP, magnesium level daily INTERVAL HISTORY: Patient was seen and examined today by me at bedside, the patient is sitting up in bed , on O2 via nasal cannula at L. She continues with cough and congestion but improved from admission. She is on Tamiflu and nebulization treatment. She also continues on Rocephin for urinary tract infection. Currently on LR at 80 cc/hour for IV hydration, appetite is improving. Pending PT and OT evaluate the patient and daughter is open to [facility] facility should the patient be to deconditioned REVIEW OF SYSTEMS: 12 point ROS reviewed with patient. Pertinent positives mentioned above. Othe rwise negative. PHYSICAL EXAM: GENERAL: awake , alert, following commands, oriented x 2 HEENT: EOMI, Sclera non icteric, moist mucosa NECK: Supple, no JVD, trachea midline LUNGS: Clear breath sounds bilaterally. No wheezes HEART: Regular rate and rhythm. Normal S1 and S2, without murmurs ABD: Abdomen soft, nontender. Bowel sounds present EXT: No clubbing cyanosis or edema NEURO: no neuro deficits, oriented x 2 Vital Signs (last 8hr) Date Time Temp Pulse Resp B/P (MAP) Pulse Ox O2 Delivery O2 Flow Rate FiO2 10/16/24 23:29 57 18 10/16/24 20:00 96 Room Air* 0 21 10/16/24 20:00 98.1 62 20 120/60 96 Room Air 10/16/24 18:28 62 18 10/16/24 18:27 62 18 N/A Room Air 21 LABS: Hematology Labs: Test 10/16/24 05:36 Range/Units White Blood Count 3.2 #L 4.8-10.8 K/uL Red Blood Count 4.14 4.00-5.50 MIL/uL Hemoglobin 10.9 L 12.0-16.0 g/dL Hematocrit 34.0 L 36-48 % Mean Corpuscular Volume 82.1 79-99 fL Mean Corpuscular Hemoglobin 26.3 L 27.0-33.0 pg Mean Corpuscular Hemoglobin Concent 32.1 32.0-36.0 g/dL Red Cell Distribution Width 14.6 11.0-15.5 % Platelet Count 134 130-400 K/uL Mean Platelet Volume 11.4 H 7.5-10.5 fL Immature Granulocyte % (Auto) 0.9 0-1 % Neutrophils (%) (Auto) 39.1 L 40.0-77.0 % Lymphocytes (%) (Auto) 43.0 21.0-51.0 % Monocytes (%) (Auto) 12.3 3.0-13.0 % Eosinophils (%) (Auto) 4.4 0.0-8.0 % Basophils (%) (Auto) 0.3 0.0-5.0 % Neutrophils # (Auto) 1.2 L 1.8-7.7 K/uL Lymphocytes # (Auto) 1.4 1.0-4.8 K/uL Monocytes # (Auto) 0.4 0.1-1.0 K/uL Eosinophils # (Auto) 0.14 0.00-0.70 K/uL Basophils # (Auto) 0.01 0.00-0.20 K/uL Absolute Immature Granulocyte (auto 0.03 0-1 K/uL Nucleated Red Blood Cells 0.0 0.0-0.19 % Chemistry Labs: Test 10/16/24 19:33 10/16/24 05:36 10/15/24 06:41 Range/Units Whole Blood Glucose 136 H 70-110 MG/DL Sodium Level 135 L 136-145 mmol/L Potassium Level 4.1 3.5-5.1 mmol/L Chloride Level 104 101-111 mmol/L Carbon Dioxide Level 24 21-32 mmol/L Blood Urea Nitrogen 21 H 7-18 mg/dL Creatinine 0.9 0.5-1.0 mg/dL Glomerular Filtration Rate Calc 65 >90 mL/min Random Glucose 163 #H 70-105 mg/dL Total Calcium 8.0 L 8.5-10.1 mg/dL Magnesium Level 1.70 L 1.80-2.40 mg/dL Total Bilirubin 0.4 0.2-1.0 mg/dL Aspartate Amino Transf (AST/SGOT) 32 10-37 U/L Alanine Aminotransferase (ALT/SGPT) 17 12-78 U/L Alkaline Phosphatase 56 50-136 U/L Ammonia < 10 L 11-32 umol/L B-Type Natriuretic Peptide 55 0-100 pg/mL Total Protein 6.6 6.0-8.3 g/dL Albumin 2.5 L 3.5-5.0 g/dL Phosphorus Level 4.3 2.5-4.9 mg/dL Procalcitonin < 0.05 L 0.05-0.5 ng/mL DIAGNOSTICS / RADIOLOGY RESULTS: [ ] PLAN NEURO: Minimize central acting medications as possible. Maintain fall precautions, adequate lighting during the day PULMONARY: Supplemental 02 as needed. Maintain aspiration precautions at all times CARDIOVASCULAR: Follow hemodynamics. Vital signs per facility protocol GI & NUTRITION: Continue with nutritional support. Continue stool softeners and laxatives as needed. KIDNEYS & ELECTROLYTES: Strict monitoring of intake, output and overall fluid balance. Avoid nephrotoxic medications to the extent possible. Medications to be dosed according to renal function. Monitor electrolytes and replace as needed ENDOCRINE: Maintain blood glucose between 100-180 at all times. Hypoglycemia protocol in place INFECTIOUS DISEASE: Trend temperature, WBC and procalcitonin level Follow cultures, deescalate antibiotics as soon as possible. Panculture if new onset fever ONCOLOGY/HEMATOLOGY/COAGULATION: Monitor for s/s of bleeding Monitor hemoglobin, coagulation studies as needed SKIN: Pressure ulcer prevention per facility protocol Specialty mattress ORTHO/REHAB: Continue PT/OT Prophylaxis: Continue GI and DVT prophylaxis Code Status: Full Resuscitation Disposition: TBD Other: Total patient care time exceeds 35 minutes excluding all procedures. ROBBIE MORA Oct 17, 2024 00:17
[2024-10-17 05:10] LABS: CREATININE 0.8 mg/dL (0.5-1.0); POTASSIUM 4.3 mmol/L (3.5-5.1)
--- NOTE | 2024-10-17 16:14 | PN ---
[facility] PROGRESS NOTE Date Patient Seen: Oct 17, 2024 Time of Visit: 16:08 Supervising Physician: ERI ROMERO Primary Care Physician: Lanre Troy MD Outpatient Specialists: [ ] Inpatient Consults: [ ] PROBLEM LIST Acute hypoxic respiratory failure, POA Influenza B positive, POA ESBL Ecoli Complicated Cystitis Alteration in mental status, POA , in setting of underlying dementia, improving Acute kidney injury, POA Hypertension, POA Hypothyroidism, POA History of dementia on donepezil PLAN: Continue O2 therapy , wean off as able Isolation precautions We will continue Tamiflu Start pulmicort and atrovent OPtimize IV antiboitic to Zosyn for ESBL UTi- Arrange invanz at home if able if not consider LEvaquin if okay with attending on DC Case mgt order will be placed for invanz IMx 7 days now. Monitor temperature curve Safety precautions Keep head of bed above 30 Keep systolic blood pressure less than 160 P.r.n. hydralazine labetalol Follow up culture results CBC, CMP, magnesium level daily Anticpate DC in next 24 hours if respiratory status improves. Family declining SNF INTERVAL HISTORY: Patient was seen and examined today by me at bedside, the patient is sitting up in bed , on O2 via nasal cannula at. She continues with cough and congestion ,cough and wheezing . She is on Tamiflu and nebulization treatment. She also continues on Rocephin for urinary tract infection. Cultures + for Ecoli ESBL , Will have to stop rocephin and start patient on Zosyn . ( She does have sensitivies to Levaquin that could be RX upon DC) . CXR does not reveal of evidence of pulmonary congestion or effusions. ProBNP of 56 Family does not want SNF . REVIEW OF SYSTEMS: 12 point ROS reviewed with patient. Pertinent positives mentioned above. Otherwise negative. PHYSICAL EXAM: GENERAL: awake , alert, following commands, oriented x 2 HEENT: EOMI, Sclera non icteric, moist mucosa NECK: Supple, no JVD, trachea midline LUNGS: Clear breath sounds bilaterally. + expiratory wheezes HEART: Regular rate and rhythm. Normal S1 and S2, without murmurs ABD: Abdomen soft, nontender. Bowel sounds present EXT: No clubbing cyanosis or edema NEURO: no neuro deficits, oriented x 2 Vital Signs (last 8hr) Date Time Temp Pulse Resp B/P (MAP) Pulse Ox O2 Delivery O2 Flow Rate FiO2 2/27/25 12:00 98.2 65 18 123/56 97 Room Air 10/17/24 11:29 68 20 10/17/24 11:28 68 18 N/A Room Air 21 LABS: Hematology Labs: Test 10/16/24 05:36 Range/Units White Blood Count 3.2 #L 4.8-10.8 K/uL Red Blood Count 4.14 4.00-5.50 MIL/uL Hemoglobin 10.9 L 12.0-16.0 g/dL Hematocrit 34.0 L 36-48 % Mean Corpuscular Volume 82.1 79-99 fL Mean Corpuscular Hemoglobin 26.3 L 27.0-33.0 pg Mean Corpuscular Hemoglobin Concent 32.1 32.0-36.0 g/dL Red Cell Distribution Width 14.6 11.0-15.5 % Platelet Count 134 130-400 K/uL Mean Platelet Volume 11.4 H 7.5-10.5 fL Immature Granulocyte % (Auto) 0.9 0-1 % Neutrophils (%) (Auto) 39.1 L 40.0-77.0 % Lymphocytes (%) (Auto) 43.0 21.0-51.0 % Monocytes (%) (Auto) 12.3 3.0-13.0 % Eosinophils (%) (Auto) 4.4 0.0-8.0 % Basophils (%) (Auto) 0.3 0.0-5.0 % Neutrophils # (Auto) 1.2 L 1.8-7.7 K/uL Lymphocytes # (Auto) 1.4 1.0-4.8 K/uL Monocytes # (Auto) 0.4 0.1-1.0 K/uL Eosinophils # (Auto) 0.14 0.00-0.70 K/uL Basophils # (Auto) 0.01 0.00-0.20 K/uL Absolute Immature Granulocyte (auto 0.03 0-1 K/uL Nucleated Red Blood Cells 0.0 0.0-0.19 % Chemistry Labs: Test 10/17/24 10:57 10/17/24 04:14 10/16/24 05:36 Range/Units Whole Blood Glucose 217 #H 70-110 MG/DL Sodium Level 139 136-145 mmol/L Potassium Level 4.3 3.5-5.1 mmol/L Chloride Level 106 101-111 mmol/L Carbon Dioxide Level 27 21-32 mmol/L Blood Urea Nitrogen 16 7-18 mg/dL Creatinine 0.8 0.5-1.0 mg/dL Glomerular Filtration Rate Calc 75 >90 mL/min Random Glucose 117 H 70-105 mg/dL Total Calcium 8.5 8.5-10.1 mg/dL Magnesium Level 2.00 1.80-2.40 mg/dL Total Bilirubin 0.4 0.2-1.0 mg/dL Aspartate Amino Transf (AST/SGOT) 32 10-37 U/L Alanine Aminotransferase (ALT/SGPT) 17 12-78 U/L Alkaline Phosphatase 56 50-136 U/L Ammonia < 10 L 11-32 umol/L B-Type Natriuretic Peptide 55 0-100 pg/mL Total Protein 6.6 6.0-8.3 g/dL Albumin 2.5 L 3.5-5.0 g/dL DIAGNOSTICS / RADIOLOGY RESULTS: [ ] PLAN NEURO: Minimize central acting medications as possible. Maintain fall precautions, adequate lighting during the day PULMONARY: Supplemental 02 as needed. Maintain aspiration precautions at all times CARDIOVASCULAR: Follow hemodynamics. Vital signs per facility protocol GI & NUTRITION: Continue with nutritional support. Continue stool softeners and laxatives as needed. KIDNEYS & ELECTROLYTES: Strict monitoring of intake, output and overall fluid balance. Avoid nephrotoxic medications to the extent possible. Medications to be dosed according to renal function. Monitor electrolytes and replace as needed ENDOCRINE: Maintain blood glucose between 100-180 at all times. Hypoglycemia protocol in place INFECTIOUS DISEASE: Trend temperature, WBC and procalcitonin level Follow cultures, deescalate antibiotics as soon as possible. Panculture if new onset fever ONCOLOGY/HEMATOLOGY/COAGULATION: Monitor for s/s of bleeding Monitor hemoglobin, coagulation studies as needed SKIN: Pressure ulcer prevention per facility protocol Specialty mattress ORTHO/REHAB: Continue PT/OT Prophylaxis: Continue GI and DVT prophylaxis Code Status: Full Resuscitation Disposition: TBD Other: Total patient care time exceeds 35 minutes excluding all procedures. ROBBIE MORA Oct 17, 2024 16:14
[2024-10-17] MEDS: ZOSYN 3.375GM +NS 50ML IV SCH (17:35)
--- NOTE | 2024-10-17 18:44 | NUR ---
Discharge Planning: Order entered for Invanz IM x 7 days at home. Called in RX at [facility], patient's pharmacy. Not available at present time but will order for possibly tomorrow. No syringes available. Verbal phone consent obtained from patient's daughter Sarahi Brown for RX, DME and home health to administer injections.
[2024-10-17] MEDS: BUDESONIDE 0.5 MG/2 ML INH IH SCH (19:15)
[2024-10-17] MEDS: hydrOXYzine 25 MG TABLET PO SCH (21:39)
[2024-10-17] MEDS: MEMANtine HCL 5 MG TABLET PO SCH (21:39)
[2024-10-17] MEDS: atorVAStatin 40 MG TABLET PO SCH (21:39)
[2024-10-18] VITALS (15 sets, daily range): BP systolic 107–138; BP diastolic 52–74; PULSE 52–68; RESP 16–22; TEMP 97.9–98.8; O2SAT 96–98
[2024-10-18] MEDS: levoTHYROxine 100 MCG TABLET PO SCH (06:54)
[2024-10-18] MEDS: PARoxetine HCL 20 MG TABLET PO SCH (08:55)
[2024-10-18] MEDS: doNEPEZil HCL 5 MG TAB PO SCH (08:56)
[2024-10-18] MEDS: LISINOPRIL 5 MG TABLET PO SCH (08:56)
--- NOTE | 2024-10-18 15:41 | PN ---
[facility] PROGRESS NOTE Date Patient Seen: Oct 18, 2024 Time of Visit: 15:36 Supervising Physician: Dr. Bruce Sanchez Primary Care Physician: Lanre Troy MD Outpatient Specialists: [ ] Inpatient Consults: [ ] PROBLEM LIST Acute hypoxic respiratory failure, POA Influenza B positive, POA ESBL Ecoli Complicated Cystitis Alteration in mental status, POA , in setting of underlying dementia, improving Acute kidney injury, POA Hypertension, POA Hypothyroidism, POA History of dementia on donepezil PLAN: Continue O2 therapy , wean off as able Isolation precautions We will continue Tamiflu one more day Start pulmicort and atrovent Likely discharge tomorrow morning on Levaquin p.o. for five days Monitor temperature curve Safety precautions Keep head of bed above 30 Keep systolic blood pressure less than 160 P.r.n. hydralazine labetalol Follow up culture results CBC, CMP, magnesium level daily Anticpate DC in next 24 hours if respiratory status improves. Family declining SNF INTERVAL HISTORY: Patient evaluated at bedside today, she is resting comfortably, no acute distress. White count today low at 3.2, hemoglobin remained stable. Patient continues on IV Zosyn at this time. In conversation with case management, Invanz is unable to be distributed to the patient for approximately one week due to shipping reasons to the pharmacy. Patient currently with flu and ESBL E coli in the urine. She has one more day of Tamiflu left for which she will stay overnight, possible discharge tomorrow morning with levofloxacin sent to pharmacy for her to complete her treatment of ESBL E coli which show susceptibility to levofloxacin as well as preventative coverage for bacterial pneumonia following viral respiratory infection. Patient will be evaluated in the morning, follow morning labs. Family does not want SNF . REVIEW OF SYSTEMS: 12 point ROS reviewed with patient. Pertinent positives mentioned above. Otherwise negative. PHYSICAL EXAM: GENERAL: awake , alert, following commands, oriented x 2 HEENT: EOMI, Sclera non icteric, moist mucosa NECK: Supple, no JVD, trachea midline LUNGS: Clear breath sounds bilaterally. + expiratory wheezes HEART: Regular rate and rhythm. Normal S1 and S2, without murmurs ABD: Abdomen soft, nontender. Bowel sounds present EXT: No clubbing cyanosis or edema NEURO: no neuro deficits, oriented x 2 Vital Signs (last 8hr) Date Time Temp Pulse Resp B/P (MAP) Pulse Ox O2 Delivery O2 Flow Rate FiO2 10/18/24 12:00 98.2 52 22 135/62 97 10/18/24 11:41 57 20 10/18/24 09:00 98 Room Air* 0 21 10/18/24 08:23 97.9 56 22 124/74 98 LABS: Chemistry Labs: Test 10/18/24 11:35 10/17/24 04:14 Range/Units Whole Blood Glucose 236 #H 70-110 MG/DL Sodium Level 139 136-145 mmol/L Potassium Level 4.3 3.5-5.1 mmol/L Chloride Level 106 101-111 mmol/L Carbon Dioxide Level 27 21-32 mmol/L Blood Urea Nitrogen 16 7-18 mg/dL Creatinine 0.8 0.5-1.0 mg/dL Glomerular Filtration Rate Calc 75 >90 mL/min Random Glucose 117 H 70-105 mg/dL Total Calcium 8.5 8.5-10.1 mg/dL Magnesium Level 2.00 1.80-2.40 mg/dL DIAGNOSTICS / RADIOLOGY RESULTS: [ ] PLAN NEURO: Minimize central acting medications as possible. Maintain fall precautions, adequate lighting during the day PULMONARY: Supplemental 02 as needed. Maintain aspiration precautions at all times CARDIOVASCULAR: Follow hemodynamics. Vital signs per facility protocol GI & NUTRITION: Continue with nutritional support. Continue stool softeners and laxatives as needed. KIDNEYS & ELECTROLYTES: Strict monitoring of intake, output and overall fluid balance. Avoid nephrotoxic medications to the extent possible. Medications to be dosed according to renal function. Monitor electrolytes and replace as needed ENDOCRINE: Maintain blood glucose between 100-180 at all times. Hypoglycemia protocol in place INFECTIOUS DISEASE: Trend temperature, WBC and procalcitonin level Follow cultures, deescalate antibiotics as soon as possible. Panculture if new onset fever ONCOLOGY/HEMATOLOGY/COAGULATION: Monitor for s/s of bleeding Monitor hemoglobin, coagulation studies as needed SKIN: Pressure ulcer prevention per facility protocol Specialty mattress ORTHO/REHAB: Continue PT/OT Prophylaxis: Continue GI and DVT prophylaxis Code Status: Full Resuscitation Disposition: TBD Other: Total patient care time exceeds 35 minutes excluding all procedures. JOELLEN POLK Oct 18, 2024 15:41
--- NOTE | 2024-10-18 16:19 | NUR ---
Discharge Planning: As per [facility], patient needs one more day of Tamiflu and will be discharged on Levaquin PO. [facility] called, spoke to Rogelio and cancelled order for IM Invanz.
--- NOTE | 2024-10-18 21:10 | NUR ---
[facility] SHIFT ASSESSMENT DONE, PLEASE REFER TO CHART. DUE MEDS ADMINISTERED, TOLERATED WELL. KEPT RESTED AND COMFORTABLE IN BED. CALL LIGHT WITHIN REACH.
[2024-10-19 04:00] VITALS: BP 133/61; PULSE 52; RESP 20; TEMP 98.8
[2024-10-19 05:01] LABS: HEMATOCRIT 36.5 % (36-48); MEAN CORPUSCULAR HEMOGLOBIN 26.4 pg (27.0-33.0); MEAN CORPUSCULAR HGB CONC 31.8 g/dL (32.0-36.0); MEAN CORPUSCULAR VOLUME 83.1 fL (79-99); RED BLOOD CELL COUNT(AUTO) 4.39 MIL/uL (4.00-5.50); RED CELL DISTRIBUTION WIDTH 14.5 % (11.0-15.5)
[2024-10-19 05:12] LABS: POTASSIUM 3.8 mmol/L (3.5-5.1)
--- NOTE | 2024-10-19 05:45 | NUR ---
MEDS PT SLEPT AT INTERVALS DURING THE SHIFT. NO DISTRESS NOTED. AWAKENED FOR DUE MEDS. TOLERATED WELL. KEPT COMFORTABLE IN BED. FOR MORE CARE.
[2024-10-19 07:14] VITALS: PULSE 51; RESP 18
[2024-10-19 07:17] VITALS: PULSE 51; RESP 18; O2SAT 94
[2024-10-19 08:00] VITALS: BP 134/59; PULSE 57; RESP 20; TEMP 97.6; O2SAT 95
[2024-10-19] MEDS ORDERED: LEVO250T75 PO (09:48)
[2024-10-19 11:35] VITALS: PULSE 53; RESP 18
[2024-10-19 12:00] VITALS: BP 131/53; PULSE 56; RESP 19; TEMP 97.9
--- NOTE | 2024-10-19 12:36 | NUR ---
FAMILY FOR DC CALLED JESSICA METCALF, SHE WILL BE HERE SOON TO PICK PATIENT UP FOR DC TO HOME.
--- NOTE | 2024-10-19 14:54 | DS ---
[facility] DISCHARGE SUMMARY Date Patient Seen: Oct 19, 2024 Time of Visit: 14:52 Supervising Physician: Dr. Bruce Sanchez Supervising Physician: Dr. Bruce Sanchez Primary Care Physician: Lanre Troy MD Outpatient Specialists: [ ] Inpatient Consults: [ ] HOSPITAL COURSE: HPI (per admitting provider) 79-year-old female with past medical history of dementia, hypertension, hypothyroidism, who presented to ED via EMS with complaint of worsening shortness of breast for several days and found to have acute hypoxic respiratory failure, and flu B positive. Patient was seen and examined in ED with no relatives present at bedside. Patient unable to provide any pertinent information regarding her admission and pertinent medical history. All information were obtained from prior medical record and ER staff report. Patient presented in ER with mild hypoxemia improved with O2 therapy. Stat chest x-ray was done showed vascular congestion with superimposed pneumonitis, her CBC unrevealing for any acute infection or anemia, her chemistry is significant for creatinine level of 1.2, with normal electrolytes. Her COVID test was negative however her flu test came back positive with flu B. In ED patient was initiated on IV fluids and started on Tamiflu. At present patient is currently hemodynamically stable, on2 L of oxygen with appropriate oxygen saturation, patient is confused, with no focal weakness noted. The patient was treated for the following problems: ACTIVE PROBLEM LIST FOR THE HOSPITALIZATION: Acute hypoxic respiratory failure, resolved Influenza B positive, Resolved ESBL Ecoli Complicated Cystitis, continue treatment as outpatient Alteration in mental status, POA , in setting of underlying dementia, improving Acute kidney injury, POA CHRONIC PROBLEMS: continue previous management per PCP unless otherwise indicated Hypertension, POA Hypothyroidism, POA History of dementia on donepezil HEALTH EDUCATION AIDE FINDINGS/RECOMMENDATIONS: [ ] PROCEDURES: as mentioned above DISCHARGE MEDICATIONS: Pt hemodynamically stable and afebrile at time of discharge. PCP notified of patients admission, hospital course and discharge. PHYSICAL EXAM: GENERAL: awake , alert, following commands, oriented x 2 HEENT: EOMI, Sclera non icteric, moist mucosa NECK: Supple, no JVD, trachea midline LUNGS: Clear breath sounds bilaterally. + expiratory wheezes HEART: Regular rate and rhythm. Normal S1 and S2, without murmurs ABD: Abdomen soft, nontender. Bowel sounds present EXT: No clubbing cyanosis or edema NEURO: no neuro deficits, oriented x 2 FOLLOW-UP: Follow-up with PCP in 2-3 days RECOMMENDATIONS: See Discharge Instructions This case was seen and discussed with my supervising physician. More than 30 minutes spent on discharge process, including evaluation of the patient, discussion with nursing staff, medication reconciliation and follow-up appointments JOELLEN POLK Oct 19, 2024 14:54
== END 2024-10-19 13:00 | disposition home or self-care (01) | DRG 193 ==
LOC: EDH 11:04 → EDHIP 19:48 → OBSVTOIN 19:48 → 3AH 10-15 19:43
PROVIDERS: ADMIT Internal Medicine Pulmonary Disease; ATTEND Internal Medicine Pulmonary Disease
DX: J10.1 Influenza due to other identified influenza virus with other respiratory manifestations (principal); J96.01 Acute respiratory failure with hypoxia; N17.9 Acute kidney failure, unspecified; I10 Essential (primary) hypertension; E03.9 Hypothyroidism, unspecified; F03.90 Unspecified dementia, unspecified severity, without behavioral disturbance, psychotic disturbance, mood disturbance, and anxiety; B96.20 Unspecified Escherichia coli [E. coli] as the cause of diseases classified elsewhere; J98.4 Other disorders of lung; E86.0 Dehydration; N30.90 Cystitis, unspecified without hematuria; Z20.822 Contact with and (suspected) exposure to COVID-19; Z78.9 Other specified health status; Z88.0 Allergy status to penicillin
CPT/HCPCS: 36415; 71045; 80048; 80053; 81001; 82140; 82948; 83605; 83735; 83880; 84100; 84145; 84484; 85025; 85027; 87040; 87086; 87186; 87635; 87804; 93005; 94640; 94664; 96374; 99285; G0378; J0696; J1650; J1815; J2543; J3475; J7030; J7120

== ENCOUNTER 2024-11-11 06:35 | Day surgery (SDC) | payer OTHER, MEDICARE ==
[2024-11-07 08:56] LABS: BASOPHILS # (AUTO) 0.04 K/uL (0.00-0.20); BASOPHILS % (AUTO) 0.7 % (0.0-5.0); EOSINOPHILS # (AUTO) 0.24 K/uL (0.00-0.70); EOSINOPHILS % (AUTO) 4.1 % (0.0-8.0); HEMATOCRIT 42.2 % (36-48); IMMATURE GRANULOCYTE ABSOLUTE 0.04 K/uL (0-1); LYMPHOCYTES # (AUTO) 2.1 K/uL (1.0-4.8); LYMPHOCYTES % (AUTO) 36.6 % (21.0-51.0); MEAN CORPUSCULAR HGB CONC 30.3 g/dL (32.0-36.0); MEAN CORPUSCULAR VOLUME 85.8 fL (79-99); MONOCYTES # (AUTO) 0.5 K/uL (0.1-1.0); MONOCYTES % (AUTO) 8.8 % (3.0-13.0); NEUTROPHILS # (AUTO) 2.9 K/uL (1.8-7.7); NEUTROPHILS % (AUTO) 49.1 % (40.0-77.0); PLATELET COUNT (AUTO) 180 K/uL (130-400); RED BLOOD CELL COUNT(AUTO) 4.92 MIL/uL (4.00-5.50); RED CELL DISTRIBUTION WIDTH 15.1 % (11.0-15.5); WHITE BLOOD COUNT (AUTO) 5.8 K/uL (4.8-10.8)
[2024-11-07 09:06] LABS: INR 1.04 (0.85-1.15)
[2024-11-07 09:08] LABS: PARTIAL THROMBOPLASTIN TIME 27.9 SEC (26.3-35.5)
[2024-11-07 09:13] LABS: CREATININE 1.1 mg/dL (0.5-1.0); POTASSIUM 4.4 mmol/L (3.5-5.1)
[2024-11-07 09:21] VITALS: BP 127/59; PULSE 74; RESP 18; TEMP 97.2
--- NOTE | 2024-11-07 10:04 | EKG ---
[facility] Test Date: 2024-11-07 Test Time: 08:32:54 Pat Name: TANA METCALF Department: [facility] Room: Gender: F Food Storeroom Clerk: [id number] : 1945 Requested By: SAMUEL OCHOA Order Number: [id number] Reading MD: Tyler Ceja Measurements Intervals [place] Rate: 53 P: 34 AL: 174 QRS: 68 QRSD: 121 T: 41 QT: 453 QTc: 426 Interpretive Statements Sinus rhythm Right bundle branch block Compared to ECG 10/14/2024 11:15:49 No significant changes Electronically Signed On 11-07-2024 10:31:49 CDT by Tyler Ceja Please click the below link to view image of tracing.
--- NOTE | 2024-11-07 15:51 | NUR ---
report reported ekg to dr campo. ok to proceed
[2024-11-11] VITALS (13 sets, daily range): BP systolic 109–136; BP diastolic 52–63; PULSE 56–102; RESP 16–20; TEMP 96.8–97.8
[~2024-11-11] VITALS: Ht 157.5 cm; Wt 81.4 kg
[~2024-11-11 06:35] MED LIST changes: +ASPI-1443 PO
[2024-11-11] MEDS ORDERED: BUPIvacaine/PF 0.25% 30ML VIAL IJ ONE (07:58)
[2024-11-11] MEDS: CLINDAMYCIN IVPB 900MG/50ML 50 ML IV ONE (08:16)
[2024-11-11] MEDS: 0.9%NACL 1000ML 1,000 ML IV ONE (08:16)
[2024-11-11] MEDS ORDERED: LIDOCAINE PF 100MG/5ML (2%) SYRINGE 5ML ONE (09:00)
[2024-11-11] MEDS ORDERED: GLYCOPYRROLATE 0.2 MG/ML 5 ML VIAL ONE (09:00)
[2024-11-11] MEDS ORDERED: dexaMETHasone SOD PHOSPHATE 10MG/ML 1ML VIAL ONE (09:00)
[2024-11-11] MEDS ORDERED: proPOFol 10 MG/ML 20ML VIAL IV ONE (09:01)
[2024-11-11] MEDS ORDERED: NEOSTIGMINE METHYLSULFATE 1MG/ML IV ONE (09:01)
[2024-11-11] MEDS ORDERED: rocuRONium bROMide 10MG/1ML 5ML VL ONE ×2 (09:01→09:53)
[2024-11-11] MEDS ORDERED: MIDAZOLAM HCL 1 MG/ML 2ML VIAL ONE (09:02)
[2024-11-11] MEDS ORDERED: FENTanyl CITRate PF 50 MCG/1 ML 2ML VIAL ONE (09:12)
[2024-11-11] MEDS: BUPIvacaine/PF 0.25% 30ML VIAL IJ ONE (09:33)
[2024-11-11] MEDS ORDERED: ePHEDrine SULFate 50 MG/ML AMPULE ONE (09:40)
[2024-11-11] MEDS ORDERED: EPINEPHrine PF 1MG (1:1,000) 1 MG/ML AMP ONE (09:49)
--- NOTE | 2024-11-11 10:21 | OP ---
Operative Note: DATE OF PROCEDURE: 11/11/24 SURGEON: SAMUEL OCHOA MD TEST DEVELOPER: [] ANESTHESIA: [] General ANESTHESIOLOGIST/VOCATIONAL ADVISER: [] PREOPERATIVE DIAGNOSIS: [] Chronic cholecystitis POSTOPERATIVE DIAGNOSIS: [] The same SYNOPSIS: [] PROCEDURE: [] Laparoscopic cholecystectomy ESTIMATED BLOOD LOSS: [] Minimal INDICATIONS: [] DESCRIPTION OF PROCEDURE: []With the patient prepped in the usual fashion a supraumbilical incision was additionally directed to meet with placement of the trocar and abdomen insufflated. Three 5 mm trochars were placed in the right upper quadrant under direct vision. The gallbladder was exposed adhesions were taken down and I dissected triangle of Calot. There were significant adhesions covering the gallbladder. This were omentum to the liver and there were taken down with cautery dissection. I tried to expose the triangle of Calot and it was cover with a lot of scar tissue. I have banded window in neck of the gallbladder and using a Endo-KIKI 45 blue stapler I transected the gallbladder. I took the gallbladder from the liver using cautery dissection and after removed from the liver bed I placed an in a bag. I cauterized the liver bed and I placed 40 cc of Marcaine 0.25% in the side of the abdomen as an abdominal tap block under direct vision. And after adequate hemostasis and irrigation I removed all the trochars under direct vision and the gallbladder was removed from the supraumbilical incision. After removing the gallbladder I placed interrupted [id number] Vicryl's and the fascia. All incisions were closed with 4-0 Monocryl and Steri-Stripss Patient was stable at the end of the procedure SAMUEL OCHOA MD Nov 11, 2024 10:21
[2024-11-11] MEDS ORDERED: SUGAMMADEX SODIUM 200 MG/2 ML VIAL IV ONE (10:25)
--- NOTE | 2024-11-11 11:49 | NUR ---
Full and complete discharge instructions given to Patient and Family both verbally and in writing. Explained Surgical procedure precautions and follow up. Voided in bathroom large amount. Lap incisions clean and dry with stero strips and bandaids intact. All questions answered. PIV removed with catheter tip intact. Home with Family W/C to POV.
== END 2024-11-11 12:10 | disposition home or self-care (01) ==
LOC: DAH 06:35
PROVIDERS: ATTEND Surgery
DX: K80.12 Calculus of gallbladder with acute and chronic cholecystitis without obstruction (principal); I10 Essential (primary) hypertension; E11.9 Type 2 diabetes mellitus without complications; E78.5 Hyperlipidemia, unspecified; E03.9 Hypothyroidism, unspecified; F31.9 Bipolar disorder, unspecified; Z98.890 Other specified postprocedural states; Z79.890 Hormone replacement therapy; Z79.899 Other long term (current) drug therapy; Z88.0 Allergy status to penicillin; Z79.01 Long term (current) use of anticoagulants
CPT/HCPCS: 80048; 85025; 85610; 85730; 36415; 93005; 47562; 82948 ×2; 88304; A6260; A4663; J7030 ×2; J3010; J1100; J0665 ×2; J3490 ×5; J2003; J0171; J2250; J2704; J2710; J0690; C1769 ×3; A4649 ×2; A4215; A4213; A4222; A4221; A4216; A4223 ×2; A4600